=== PATIENT | male | born 1980 | race Hispanic/Latino ===

== ENCOUNTER 2018-12-30 07:37 | Emergency (ER) | payer OTHER, SELFPAY ==
--- OUTSIDE RECORDS SUMMARY | 2018-12-30 07:39 | XMS REPORT ---
:1980 Author Organization [facility] Address [address] [place] [address] Care Team Providers Name Role Phone DANIELA LIN Unavailable Unavailable Problems This patient has no known problems. Allergies, Adverse Reactions, Alerts This patient has no known allergies or adverse reactions. Medications This patient has no known medications. Encounters Start End Encounter Admission Attending Care Care Encounter Date/Time Date/Time Type Type Clinicians Facility Department ID 2017-05-11 2017-05-12 Emergency [facility] [id number] 22:38:00 00:30:00 DANIELA Results Test Description Test Time Test Comments Text Results Atomic Results Result Comments CT ABDOMEN AND 2017-05-12 00:25:05 Examination: Abdomen and pelvic CT PELVIS WITHOUT without contrast After hours service CONTRAST *WW* provided on 05/12/2017 12:22 AM.Location code: [id number]: NoneTechnique:Axial noncontrast contiguous images were obtained through the abdomen andpelvis followed by coronal and sagittal reformations. One or more of thefollowing dose reduction techniques were used: Automated exposure control,adjustment of the mA and or KV according to patient size, and/or utilization ofiterative reconstruction technique.Discussion:Clinical history is remarkable for lower abdominal pain. Lung bases are clear.The heart is upper limits of normal in size.Patient has had previous gastric bypass. Evaluation is limited due to lack ofintravenous and oral contrast. The liver, gallbladder, spleen, pancreas, andright adrenal gland are normal. Left adrenal gland is hyperplastic adenomatouschange.Kidneys demonstrate appropriate contour, no renal or ureteric calculus isidentified.Caliber of the bowel is within normal limits. The appendix is normal.Bladder, prostate, and seminal vessels are unremarkable.There are no lytic or blastic lesions present within the osseous structuresImpression:1. No acute abdominopelvic abnormality. AMYLASE AND LIPASE *WW* 2017-05-11 23:42:00 Test Item Value Reference Range Comments AMYLASE (test code=10A) 53 U/L 28-100 LIPASE (test code=60A) 204 IU/L 73-393 COMPREHENSIVE METABOLIC MEYER *WW*2017-05-11 23:42:00 Test Item Value Reference Range Comments GLUCOSE (test code=06D) 80 mg/dL 75-100 SODIUM (test code=01A) 139 mmol/L 136-145 POTASSIUM (test code=01B) 3.7 mmol/L 3.6-5.1 CHLORIDE (test code=04A) 106 mmol/L 98-107 CO2 (test code=02A) 23 mmol/L 22-32 ANION GAP (test code=ANG) 13.4 mmol/L BUN (test code=05D) 14 mg/dL 7-18 CREATININE (test code=03E) 0.7 mg/dL 0.7-1.3 BUN/CREA (test code=BCR) 20 12-20 CALCIUM (test code=09D) 7.8 mg/dL 8.3-9.5 BILI TOTAL (test code=11A) 0.6 mg/dL 0.2-1.0 PROTEIN (test code=07D) 6.8 g/dL 6.4-8.2 ALBUMIN (test code=08D) 3.9 g/dL 3.5-4.8 GLOBULIN (test code=GLB) 2.9 g/dL 1.5-3.8 ALB/GLOB (test code=AGRR) 1.4 1.0-2.6 ALK PHOS (test code=35A) 72 IU/L 42-121 AST (test code=30A) 12 IU/L <=42 ALT (test code=31A) 9 IU/L <=78 URINALYSIS WITH MICRO *WW*2017-05-11 23:31:00 Test Item Value Reference Range Comments COLOR (test code=COLU) YELLOW YELLOW CLARITY (test code=CLA) HAZY CLEAR GLUCOSE UR (test code=UA GLUCOSE) NEGATIVE NEGATIVE BILI UR (test code=BILE) 1+ NEGATIVE KETONES UR (test code=GEOVANI) 1+ NEGATIVE SP GRAVITY (test code=SPGR) 1.020 1.005-1.030 PH UR (test code=PH) 7.5 4.5-8.0 PROTEIN UR (test code=PU) 1+ NEGATIVE UROBIL UR (test code=UROQ) >=8.0 EU/dL 0.2-1.0 NITRITE UR (test code=NITRITE) NEGATIVE NEGATIVE BLOOD UR (test code=UA BLOOD) NEGATIVE NEGATIVE LEUK ES UR (test code=LEUK) NEGATIVE NEGATIVE WBC UR (test code=UWBC) 1 /HPF 0-3 RBC UR (test code=URBC) 2 /HPF 0-2 EPITH UR (test code=UEPC) FEW /LPF NONE BACTERIA UR (test code=UBACT) FEW /HPF NONE CAST UR (test code=CAST) /LPF NONE CRYSTAL UR (test code=CRYU) / LPF NONE MUCUS UR (test code=MUC) / HPF NONE AMORPH UR (test code=JOVITA) FEW / HPF NONE TRICH UR (test code=UTRICH) /HPF NONE YEAST UR (test code=UY) /HPF NONE SPERM UR (test code=USPERM) /HPF NONE CBC (INCLUDES AUTOMATED DIFFERENTIAL)*[id number] 23:21:00 Test Item Value Reference Range Comments WBC (test code=WBC) 6.5 10\S\3/uL 4.5-11.0 RBC (test code=RBC) 4.51 10\S\6/uL 4.30-5.70 HGB (test code=HBG) 14.4 g/dL 14.0-18.0 HCT (test code=HCT) 41.6 % 35.0-46.0 MCV (test code=MCV) 92.2 fL 80.0-94.0 MCH (test code=MCH) 31.9 pg 27.0-31.0 MCHC (test code=MCHC) 34.6 g/dL 32.0-36.0 RDW (test code=RDW) 12.2 % 11.5-14.5 PLT (test code=PLT) 191 10\S\3/uL 130-400 MPV (test code=MPV) 10.2 fL 9.4-12.4 NEUTROP # (test code=NE#) 3.2 10\S\3/uL 2.0-8.0 LYMPH # (test code=LY#) 2.4 10\S\3/uL 1.2-4.0 MONOCYTE # (test code=MO#) 0.8 10\S\3/uL 0.0-1.1 EOSINOPH # (test code=EO#) 0.1 10\S\3/uL 0.0-0.7 BASOPHIL # (test code=BA#) 0.0 10\S\3/uL 0.0-0.3 IG # (test code=IG#) 0.01 10\S\3/uL 0.00-0.06 NRBC # (test code=NRBC#) 0.00 10\S\3/uL 0.00-0.01 NEUTROPH % (test code=NE%) 49.1 % 35.0-73.0 LYMPH % (test code=LY%) 36.6 % 20.0-55.0 MONO % (test code=MO%) 12.4 % 2.5-10.0 EOSINOPH % (test code=EO%) 1.4 % 0.0-5.0 BASOPHIL % (test code=BA%) 0.3 % 0.0-2.0 IG % (test code=IG%) 0.2 % 0.0-0.8 NRBC% (test code=NRBC%) 0.0 % 0.0-0.2 MANDIFF (test code=WMDIFF) NO NO RBC MORPH (test code=WRBCMOR) NORMAL
[2018-12-30] MEDS ORDERED: NA CHLORIDE 0.9% 1,000 ML ONE (08:13)
[2018-12-30] MEDS ORDERED: MORPHINE 4 MG/ML SYR ONE (08:13)
[2018-12-30] MEDS ORDERED: ONDANSETRON 4 MG/2 ML VIAL ONE (08:13)
[2018-12-30 08:32] LABS: Absolute Lymphocytes (CBC) 1.6 K/uL (0.7-4.9); Basophils % 0.4 % (0-1.3); Hematocrit 46.3 % (39.6-49.0); Lymphocytes % 25.9 % (15.3-44.8); MPV 8.9 fL (7.6-11.3); RBC Red Blood Cell Count 4.82 M/uL (4.33-5.43)
[2018-12-30 08:46] LABS: ALT/SGPT 20 U/L (12-78); AST/SGOT 17 U/L (15-37); Albumin 3.9 g/dL (3.4-5.0); Alkaline Phosphatase 83 U/L (45-117); BUN Blood Urea Nitrogen 9 mg/dL (7-18); Bicarbonate 26 mmol/L (21-32); Bilirubin Direct 0.1 mg/dL (0-0.2); Bilirubin Total 0.5 mg/dL (0.2-1.0); Glucose Level 89 mg/dL (74-106); Lipase 100 U/L (73-393); Potassium 3.7 mmol/L (3.5-5.1); Protein, Total 6.6 g/dL (6.4-8.2); Sodium Level 140 mmol/L (136-145)
--- NOTE | 2018-12-30 08:57 | RAD REPORT ---
EXAM DESCRIPTION: US - Abdomen Exam Limited - 12/30/2018 8:34 am CLINICAL HISTORY: ABD PAIN COMPARISON: Abdomen Pelvis W Contrast dated 04/13/2017 FINDINGS: No gallstones, sludge or other abnormalities within the gallbladder lumen. There is no wal l thickening or pericholecystic fluid. No common duct stone or biliary tree dilatation identified. IMPRESSION: Normal gallbladder and biliary tree ultrasound.
--- NOTE | 2018-12-30 08:58 | ER ---
Nurse's Notes [facility] Name: Darrell Matt Age: 38 yrs Sex: Male : 1980 Arrival Date: 12/30/2018 Time: 07:39 Bed 20 Private MD: Diagnosis: Upper abdominal pain, unspecified Presentation: 12/30 07:51 Presenting complaint: Patient states: RUQ pain since Friday , worse today, denies iw vomiting or diarrhea, +nausea, recently stopped drinking 2 weeks ago, was drinking 1-2 bottles of wine per day. Transition of care: patient was not received from another setting of care. Onset of symptoms was December 28, 2018. Risk Assessment: Do you want to hurt yourself or someone else? Patient reports no desire to harm self or others. Initial Sepsis Screen: Does the patient meet any 2 criteria? No. Patient's initial sepsis screen is negative. Does the patient have a suspected source of infection? No. Patient's initial sepsis screen is negative. Care prior to arrival: None. 07:51 Method Of Arrival: Ambulatory iw 07:51 Acuity: JAYNA 3 iw Triage Assessment: 08:00 General: Appears in no apparent distress. uncomfortable, Behavior is cooperative, bp appropriate for age, anxious. Pain: Complains of pain in abdomen. EENT: No deficits noted. Neuro: Level of Consciousness is awake, alert, obeys commands, Oriented to person, place, time, situation, Appropriate for age. Cardiovascular: No deficits noted. Respiratory: No deficits noted. GI: Abdomen is non-distended. : No signs and/or symptoms were reported regarding the genitourinary system. Derm: No deficits noted. Musculoskeletal: No deficits noted. Historical: - Allergies: 07:54 No Known Allergies; iw - Home Meds: 07:54 None [Active]; iw - PMHx: 07:54 Anxiety; Depression; HYPOGLYCEMIA; ibs; iw - PSHx: 07:54 Gastric Bypass; back surgery; iw - Immunization history:: Adult Immunizations. - Social history:: Smoking status: Patient uses tobacco products, smokes one-half pack cigarettes per day. - Ebola Screening: : Patient negative for fever greater than or equal to 101.5 degrees Fahrenheit, and additional compatible Ebola Virus Disease symptoms Patient denies exposure to infectious person Patient denies travel to an Ebola-affected area in the 21 days before illness onset No symptoms or risks identified at this time. Screenin:04 Abuse screen: Denies threats or abuse. Denies injuries from another. Nutritional bp screening: No deficits noted. Tuberculosis screening: No symptoms or risk factors identified. Fall Risk None identified. Assessment: 08:00 General: SEE TRIAGE NOTE. bp 08:00 GI: Bowel sounds present X 4 quads. Abd is soft X 4 quads. bp 08:23 Reassessment: PT RETURNED FROM U/S. bp 09:11 Reassessment: PT D/C HOME AMBULATORY WITH FAMILY, DX WITH BILIARY COLIC. bp Vital Signs: 07:54 BP 136 / 93; Pulse 91; Resp 16 S; Temp 98.2; Pulse Ox 98% on R/A; iw 08:23 BP 122 / 90; Pulse 90; Resp 16; Pulse Ox 99% ; bp 09:12 BP 125 / 89; Pulse 78; Resp 16; Temp 98; Pulse Ox 98% ; bp ED Course: 07:39 Patient arrived in ED. mr 07:41 Nisha Omalley, WILBUR is PHCP. kb 07:41 Damon Gonzalez MD is Attending Physician. kb 07:45 Joaquin Juárez, DONIS is Primary Nurse. bp 07:53 Triage completed. iw 07:55 Arm band placed on. iw 08:04 Patient has correct armband on for positive identification. Bed in low position. Call bp light in reach. Side rails up X2. Adult w/ patient. 08:04 Inserted saline lock: 20 gauge in right forearm, using aseptic technique. Blood bp collected. 08:42 US Abdomen Limited In Process Unspecified. EDMS 09:10 No provider procedures requiring assistance completed. IV discontinued, intact, bp bleeding controlled, No redness/swelling at site. Pressure dressing applied. Administered Medications: 08:20 Drug: NS 0.9% 1000 ml Route: IV; Rate: 1000 ml; Site: right forearm; bp 09:13 Follow up: IV Status: Completed infusion; IV Intake: 1000ml bp 08:20 Drug: Zofran 4 mg Route: IVP; Site: right forearm; bp 09:13 Follow up: Response: Blood sugar is elevated; Nausea is decreased bp 08:20 Drug: morphine 4 mg Route: IVP; Site: right forearm; bp 09:14 Follow up: Response: Pain is decreased bp Intake: 09:13 IV: 1000ml; Total: 1000ml. bp Outcome: 08:58 Discharge ordered by . loy 09:11 Discharged to home ambulatory, with family. bp 09:11 Condition: stable 09:11 Discharge instructions given to patient, Instructed on discharge instructions, follow up and referral plans. medication usage, Demonstrated understanding of instructions, follow-up care, medications, Prescriptions given X 2. 09:14 Patient left the ED. bp Signatures: Dispatcher [employer] EDMS Nisha Omalley, CAFE ASSISTANT-C CAFE ASSISTANT-Kristan Francois mr Barbara Mike, RN RN iw Joaquin Juárez RN RN bp
--- NOTE | 2018-12-30 08:59 | EDPHYS ---
Physician Documentation [facility] Name: Darrell Matt Age: 38 yrs Sex: Male : 1980 Arrival Date: 12/30/2018 Time: 07:39 Bed 20 Private MD: ED Physician Damon Gonzalez HPI: 12/30 08:24 This 38 yrs old Male presents to ER via Ambulatory with complaints of kb Abdominal Pain. 08:24 The patient presents with abdominal pain in the right upper quadrant. Onset: The kb symptoms/episode began/occurred 3 day(s) ago. The symptoms do not radiate. Associated signs and symptoms: Pertinent positives: nausea. The symptoms are described as constant. Modifying factors: The symptoms are alleviated by nothing, the symptoms are aggravated by nothing. Severity of pain: At its worst the pain was moderate in the emergency department the pain is unchanged. The patient has not experienced similar symptoms in the past. The patient has not recently seen a physician. Historical: - Allergies: 07:54 No Known Allergies; iw - Home Meds: 07:54 None [Active]; iw - PMHx: 07:54 Anxiety; Depression; HYPOGLYCEMIA; ibs; iw - PSHx: 07:54 Gastric Bypass; back surgery; iw - Immunization history:: Adult Immunizations. - Social history:: Smoking status: Patient uses tobacco products, smokes one-half pack cigarettes per day. - Ebola Screening: : Patient negative for fever greater than or equal to 101.5 degrees Fahrenheit, and additional compatible Ebola Virus Disease symptoms Patient denies exposure to infectious person Patient denies travel to an Ebola-affected area in the 21 days before illness onset No symptoms or risks identified at this time. ROS: 08:22 Constitutional: Negative for fever, chills, and weight loss, ENT: Negative for injury, kb pain, and discharge, Neck: Negative for injury, pain, and swelling, Cardiovascular: Negative for chest pain, palpitations, and edema, Respiratory: Negative for shortness of breath, cough, wheezing, and pleuritic chest pain, Back: Negative for injury and pain, : Negative for injury, bleeding, discharge, and swelling, MS/Extremity: Negative for injury and deformity, Skin: Negative for injury, rash, and discoloration, Neuro: Negative for headache, weakness, numbness, tingling, and seizure. 08:22 Abdomen/GI: Positive for abdominal pain, nausea, Negative for vomiting, diarrhea, constipation. Exam: 08:22 Constitutional: This is a well developed, well nourished patient who is awake, alert, kb and in no acute distress. Head/Face: Normocephalic, atraumatic. Chest/axilla: Normal chest wall appearance and motion. Nontender with no deformity. No lesions are appreciated. Cardiovascular: Regular rate and rhythm with a normal S1 and S2. No gallops, murmurs, or rubs. Normal PMI, no JVD. No pulse deficits. Respiratory: Lungs have equal breath sounds bilaterally, clear to auscultation and percussion. No rales, rhonchi or wheezes noted. No increased work of breathing, no retractions or nasal flaring. Back: No spinal tenderness. No costovertebral tenderness. Full range of motion. Skin: Warm, dry with normal turgor. Normal color with no rashes, no lesions, and no evidence of cellulitis. MS/ Extremity: Pulses equal, no cyanosis. Neurovascular intact. Full, normal range of motion. Neuro: Awake and alert, GCS 15, oriented to person, place, time, and situation. Cranial nerves II-XII grossly intact. Motor strength 5/5 in all extremities. Sensory grossly intact. Cerebellar exam normal. Normal gait. 08:22 Abdomen/GI: Inspection: abdomen appears normal, Bowel sounds: normal, in all quadrants, Palpation: soft, in all quadrants, moderate abdominal tenderness, in the right upper quadrant. Vital Signs: 07:54 BP 136 / 93; Pulse 91; Resp 16 S; Temp 98.2; Pulse Ox 98% on R/A; iw 08:23 BP 122 / 90; Pulse 90; Resp 16; Pulse Ox 99% ; bp 09:12 BP 125 / 89; Pulse 78; Resp 16; Temp 98; Pulse Ox 98% ; bp MDM: 07:45 Patient medically screened. kb 08:24 Data reviewed: vital signs, nurses notes. Data interpreted: Pulse oximetry: on room air kb is 98 %. Interpretation: normal. 08:57 Counseling: I had a detailed discussion with the patient and/or guardian regarding: the kb historical points, exam findings, and any diagnostic results supporting the discharge/admit diagnosis, lab results, radiology results, the need for outpatient follow up, a geographical historian, to return to the emergency department if symptoms worsen or persist or if there are any questions or concerns that arise at home. 12/30 07:51 Order name: Basic Metabolic Panel; Complete Time: 08:52 kb 12/30 07:51 Order name: CBC with Diff; Complete Time: 08:38 kb 12/30 07:51 Order name: Hepatic Function; Complete Time: 08:52 kb 12/30 07:51 Order name: Lipase; Complete Time: 08:52 kb 12/30 07:51 Order name: US Abdomen Limited kb 12/30 07:51 Order name: IV Saline Lock; Complete Time: 08:03 kb 12/30 07:51 Order name: Labs collected and sent; Complete Time: 08:03 kb Administered Medications: 08:20 Drug: NS 0.9% 1000 ml Route: IV; Rate: 1000 ml; Site: right forearm; bp 09:13 Follow up: IV Status: Completed infusion; IV Intake: 1000ml bp 08:20 Drug: Zofran 4 mg Route: IVP; Site: right forearm; bp 09:13 Follow up: Response: Blood sugar is elevated; Nausea is decreased bp 08:20 Drug: morphine 4 mg Route: IVP; Site: right forearm; bp 09:14 Follow up: Response: Pain is decreased bp Disposition: 09:52 Co-signature as Attending Physician, Damon Gonzalez MD. rn Disposition: 12/30/18 08:58 Discharged to Home. Impression: Upper abdominal pain, unspecified. - Condition is Stable. - Discharge Instructions: Biliary Colic, Adult, Gastroesophageal Reflux Disease, Adult, Abdominal Pain, Adult, [id number]. - Prescriptions for Bentyl 20 mg Oral Tablet - take 1 tablet by ORAL route every 6 hours As needed; 20 tablet. Zofran 4 mg Oral Tablet - take 1 tablet by ORAL route every 6 hours As needed; 20 tablet. - Work release form, Medication Reconciliation Form, Thank You Letter, Antibiotic Education, Prescription Opioid Use form. - Follow up: Emergency Department; When: As needed; Reason: Worsening of condition. Follow up: Private Physician; When: 2 - 3 days; Reason: Recheck today's complaints, Continuance of care, Re-evaluation by your physician. Signatures: Dispatcher [facility] Nisha Arias, MANNY-C POURED WALL FOREMAN-Barbara Neff, RN RN Damon Monahan MD MD rn Joaquin Juárez, RN RN bp Corrections: (The following items were deleted from the chart) 09:14 08:58 12/30/2018 08:58 Discharged to Home. Impression: Upper abdominal pain, bp unspecified. Condition is Stable. Forms are Medication Reconciliation Form, Thank You Letter, Antibiotic Education, Prescription Opioid Use. Follow up: Emergency Department; When: As needed; Reason: Worsening of condition. Follow up: Private Physician; When: 2 - 3 days; Reason: Recheck today's complaints, Continuance of care, Re-evaluation by your physician. kb
[2018-12-30 11:36] VITALS: BP 125/89; TEMP 98; O2SAT 98
== END 2018-12-30 09:14 | disposition home or self-care (01) ==
LOC: ER 07:37
DX: R10.10 Upper abdominal pain, unspecified (principal); F17.210 Nicotine dependence, cigarettes, uncomplicated
CPT/HCPCS: 36415; 76705; 80048; 80076; 83690; 85025; 96361; 96374; 96375; 99284; J2405; J7030

== ENCOUNTER 2019-01-21 09:00 | Emergency (ER) | payer SELFPAY ==
--- OUTSIDE RECORDS SUMMARY | 2019-01-21 09:08 | XMS REPORT ---
:1980 [facility] Address [address] [place] [address] Care Team Providers Name Role Phone DANIELA LIN Unavailable Unavailable Problems This patient has no known problems. Allergies, Adverse Reactions, Alerts This patient has no known allergies or adverse reactions. Medications This patient has no known medications. Encounters Start End Encounter Admission Attending Care Care Encounter Date/Time Date/Time Type Type Clinicians Facility Department ID 2017-05-11 2017-05-12 Emergency [facility] [id number] 22:38:00 00:30:00 DANIELA Results Test Description Test Time Test Comments Text Results Atomic Results Result Comments CT ABDOMEN AND 2017-05-12 00:25:05 Examination: Abdomen and pelvic CT PELVIS WITHOUT without contrast After hours service CONTRAST *WW* provided on 05/12/2017 12:22 AM.Location code: [id number]: NoneTechnique:Axial noncontrast contiguous images were obtained through [...] (test code=USPERM) /HPF NONE CBC (INCLUDES AUTOMATED DIFFERENTIAL)*[id number] 23:21:00 Test Item Value Reference Range Comments [...]
--- NOTE | 2019-01-21 09:38 | RAD REPORT ---
EXAM DESCRIPTION: US - Abdomen Exam Limited - 01/21/2019 9:31 am CLINICAL HISTORY: RUQ pain COMPARISON: Abdomen Exam Limited dated 12/30/2018 FINDINGS: No gallstones, sludge or other abnormalities within the gallbladder lumen. There is no wal l thickening or pericholecystic fluid. Gallbladder is well filled but not dilated. No common duct stone or biliary tree dilatation identified. IMPRESSION: Normal gallbladder and biliary tree ultrasound.
[2019-01-21] MEDS ORDERED: MORPHINE 4 MG/ML SYR ONE (09:42)
[2019-01-21] MEDS ORDERED: MAGNE/ALUM HYDROXD 30 ML UCUP ONE (09:43)
[2019-01-21] MEDS ORDERED: FAMOTIDINE 20 MG/2 ML VIAL IV ONE (09:43)
[2019-01-21] MEDS ORDERED: ONDANSETRON 4 MG/2 ML VIAL ONE (09:43)
[2019-01-21] MEDS ORDERED: LIDOCAINE VISCOUS 2% SOLN 15 ML UDC ONE (09:44)
[2019-01-21 10:02] LABS: ALT/SGPT 35 U/L (12-78); AST/SGOT 22 U/L (15-37); Albumin 4.4 g/dL (3.4-5.0); Alkaline Phosphatase 96 U/L (45-117); BUN Blood Urea Nitrogen 11 mg/dL (7-18); Bicarbonate 26 mmol/L (21-32); Bilirubin Direct 0.3 mg/dL (0-0.2); Bilirubin Total 1.1 mg/dL (0.2-1.0); Glucose Level 93 mg/dL (74-106); Lipase 125 U/L (73-393); Protein, Total 7.4 g/dL (6.4-8.2); Sodium Level 141 mmol/L (136-145)
[2019-01-21 10:04] LABS: Absolute Lymphocytes (CBC) 1.4 K/uL (0.7-4.9); Basophils % 0.5 % (0-1.3); Hematocrit 47.7 % (39.6-49.0); MPV 8.2 fL (7.6-11.3); RBC Red Blood Cell Count 5.07 M/uL (4.33-5.43)
--- NOTE | 2019-01-21 10:48 | RAD REPORT ---
EXAM DESCRIPTION: CT - Abdomen Pelvis W Contrast - 01/21/2019 10:23 am CLINICAL HISTORY: Abdominal pain COMPARISON: 2018 TECHNIQUE: Computed axial tomography of the abdomen pelvis was obtained. 100 cc Isovue-300 was admin istered intravenously. Oral contrast was not requested which limits evaluation of bowel. All CT scans are performed using dose optimization technique as appropriate and may include automated exposure control or mA/KV adjustment according to patient size. FINDINGS: Mild fatty liver Spleen, pancreas, right adrenal and kidneys appear unremarkable. Mild prominence of the left adrenal gland is unchanged and could indicate adenoma or hyperplasia. Postsurgical changes involve the stomach. Normal appendix There is no evidence of diverticulitis. IMPRESSION: No acute abnormality is displayed.
--- NOTE | 2019-01-21 11:11 | ER ---
Nurse's Notes [facility] Name: Darrell Matt Age: 38 yrs Sex: Male : 1980 Arrival Date: 01/21/2019 Time: 09:03 Bed 16 Private MD: Diagnosis: Upper abdominal pain, unspecified Presentation: 01/21 09:11 Presenting complaint: Patient states: Seen in ER for abd pain on 12/30, was told to follow up with specialist, but has not been able to. Pt is back today because his symptoms have not gone away, but have gotten worse. Reports that pain is worse after every meal. Transition of care: patient was not received from another setting of care. Onset of symptoms was December 2018. Risk Assessment: Do you want to hurt yourself or someone else? Patient reports no desire to harm self or others. Initial Sepsis Screen: Does the patient meet any 2 criteria? HR > 90 bpm. Does the patient have a suspected source of infection? No. Patient's initial sepsis screen is negative. Care prior to arrival: None. 09:11 Method Of Arrival: Ambulatory ss 09:11 Acuity: JAYNA 3 ss Historical: - Allergies: 09:13 No Known Allergies; ss - PMHx: 09:13 Anxiety; Depression; HYPOGLYCEMIA; ibs; ss - PSHx: 09:13 Gastric Bypass; back surgery; ss - Immunization history:: Adult Immunizations up to date. - Family history:: not pertinent. - Ebola Screening: : Patient negative for fever greater than or equal to 101.5 degrees Fahrenheit, and additional compatible Ebola Virus Disease symptoms. - Hospitalizations: : No recent hospitalization is reported. Screenin:12 Abuse screen: Denies threats or abuse. Nutritional screening: Has had N/V for 3 or more rb1 days. Tuberculosis screening: No symptoms or risk factors identified. Fall Risk None identified. Assessment: 09:12 General: Appears in no apparent distress. comfortable, Behavior is calm, cooperative. rb1 Pain: Complains of pain in abdomen Pain currently is 8 out of 10 on a pain scale. Quality of pain is described as sharp, shooting, Pain began on 12/30. Pain increases after eating. Neuro: Level of Consciousness is awake, alert, obeys commands, Oriented to person, place, time, situation. Cardiovascular: Capillary refill < 3 seconds is brisk in bilateral fingers. Respiratory: Airway is patent Respiratory effort is even, unlabored, Respiratory pattern is regular, symmetrical. GI: Bowel sounds present X 4 quads. Abd is soft and non tender Reports diarrhea, nausea, vomiting. : No signs and/or symptoms were reported regarding the genitourinary system. Derm: Skin is pink, warm \T\ dry. Vital Signs: 09:11 BP 157 / 100; Pulse 103; Resp 16; Temp 98.8(TE); Pulse Ox 100% on R/A; ss 09:12 Weight 99.79 kg (R); Height 5 ft. 9 in. (175.26 cm) (R); Pain 8/10; rb1 10:10 BP 137 / 83; Pulse 84; Resp 17; Pulse Ox 96% ; rb1 11:09 BP 137 / 85; Pulse 89; Resp 18; Pulse Ox 97% on R/A; Pain 5/10; rb1 09:12 Body Mass Index 32.49 (99.79 kg, 175.26 cm) rb1 ED Course: 09:03 Patient arrived in ED. as 09:04 Damon Gonzalez MD is Attending Physician. rn 09:11 Arm band placed on right wrist. ss 09:12 Triage completed. ss 09:12 Patient has correct armband on for positive identification. Bed in low position. Call rb1 light in reach. Side rails up X 1. Pulse ox on. NIBP on. 09:15 Greta Cottrell, RN is Primary Nurse. rb1 09:33 US Abdomen Limited In Process Unspecified. EDMS 09:37 Inserted saline lock: 20 gauge in right antecubital area, using aseptic technique. rb1 ,using aseptic technique. IV was inserted by [facility], Instructor and nursing students. Blood collected. 10:27 CT Abd/Pelvis - IV Contrast Only In Process Unspecified. EDMS 11:06 Ash Gallardo MD is Referral Physician. rn 11:26 No provider procedures requiring assistance completed. IV discontinued, intact, rb1 bleeding controlled, No redness/swelling at site. Pressure dressing applied. Administered Medications: 09:43 Drug: GI Cocktail without - (Maalox Suspension 30 ml, Lidocaine Liquid 2 % 15 rb1 ml) Route: PO; 10:00 Follow up: Response: No adverse reaction rb1 09:43 Drug: Pepcid 20 mg Route: IVP; Site: right antecubital; rb1 10:00 Follow up: Response: No adverse reaction rb1 09:43 Drug: Zofran 4 mg Route: IVP; Site: right antecubital; rb1 10:00 Follow up: Response: No adverse reaction; Nausea is decreased rb1 09:43 Drug: morphine 4 mg Route: IVP; Site: right antecubital; rb1 10:00 Follow up: Response: No adverse reaction; Pain is decreased rb1 Outcome: 11:06 Discharge ordered by . rn 11:26 Patient left the ED. rb1 11:26 Discharged to home ambulatory, with significant other. rb1 11:26 Condition: stable 11:26 Discharge instructions given to patient, Instructed on discharge instructions, follow up and referral plans. medication usage, Demonstrated understanding of instructions, follow-up care, medications, Prescriptions given X 2. Signatures: Dispatcher [employer] Dina Ellison Roman, MD MD rn Smirch, Shelby, RN RN ss Greta Cottrell RN RN rb1
--- NOTE | 2019-01-21 11:12 | EDPHYS ---
Physician Documentation [facility] Name: Darrell Matt Age: 38 yrs Sex: Male : 1980 Arrival Date: 01/21/2019 Time: 09:03 Bed 16 Private MD: ED Physician Damon Gonzalez HPI: 01/21 11:01 This 38 yrs old Male presents to ER via Ambulatory with complaints of rn Abdominal Pain. 11:01 The patient presents with abdominal pain in the epigastric area. Onset: The rn symptoms/episode began/occurred weeks/months ago. The symptoms do not radiate. Associated signs and symptoms: Pertinent positives: nausea and vomiting, Pertinent negatives: blood in stools, chest pain, constipation, dysuria, fever. The symptoms are described as burning, crampy. Modifying factors: The symptoms are alleviated by nothing, the symptoms are aggravated by food. Severity of pain: At its worst the pain was moderate in the emergency department the pain has improved. The patient has experienced similar episodes in the past. The patient has been recently seen by a physician: The patient has been recently seen at the [facility] Emergency Department. Reports pain on and off for weeks/months, told to f/u with GI but has not, worse with food, neg blood and u/s this month. No hematemesis or dark stool. + drinker. . Historical: - Allergies: 09:13 No Known Allergies; ss - PMHx: 09:13 Anxiety; Depression; HYPOGLYCEMIA; ibs; ss - PSHx: 09:13 Gastric Bypass; back surgery; ss - Immunization history:: Adult Immunizations up to date. - Family history:: not pertinent. - Ebola Screening: : Patient negative for fever greater than or equal to 101.5 degrees Fahrenheit, and additional compatible Ebola Virus Disease symptoms. - Hospitalizations: : No recent hospitalization is reported. ROS: 11:01 Constitutional: Negative for fever, chills, and weight loss, Eyes: Negative for injury, rn pain, redness, and discharge, Cardiovascular: Negative for chest pain, palpitations, and edema, Respiratory: Negative for shortness of breath, cough, wheezing, and pleuritic chest pain, Abdomen/GI: + abd pain and nausea Back: Negative for injury and pain, : Negative for injury, bleeding, discharge, and swelling, MS/Extremity: Negative for injury and deformity, Skin: Negative for injury, rash, and discoloration, Neuro: Negative for headache, weakness, numbness, tingling, and seizure. Exam: 11:01 Constitutional: This is a well developed, well nourished patient who is awake, alert, rn and in no acute distress. Head/Face: Normocephalic, atraumatic. ENT: MMM Cardiovascular: Regular rate and rhythm. No pulse deficits. Respiratory: No increased work of breathing, no retractions or nasal flaring. Abdomen/GI: soft, + RUQ tenderness, neg valero, no peritoneal signs. Skin: Warm, dry MS/ Extremity: Pulses equal, no cyanosis. Neurovascular intact. Full, normal range of motion. Equal circumference. Neuro: Awake and alert, GCS 15 Vital Signs: 09:11 BP 157 / 100; Pulse 103; Resp 16; Temp 98.8(TE); Pulse Ox 100% on R/A; ss 09:12 Weight 99.79 kg (R); Height 5 ft. 9 in. (175.26 cm) (R); Pain 8/10; rb1 10:10 BP 137 / 83; Pulse 84; Resp 17; Pulse Ox 96% ; rb1 11:09 BP 137 / 85; Pulse 89; Resp 18; Pulse Ox 97% on R/A; Pain 5/10; rb1 09:12 Body Mass Index 32.49 (99.79 kg, 175.26 cm) rb1 MDM: 09:04 Patient medically screened. rn 11:01 Differential diagnosis: cholecystitis, Cholelithiasis, gastritis, gastroesophageal rn reflux disease, Hepatitis, pancreatitis, Peptic Ulcer Disease. Data reviewed: vital signs, nurses notes, lab test result(s), radiologic studies, CT scan, ultrasound, and as a result, I will discharge patient. Counseling: I had a detailed discussion with the patient and/or guardian regarding: the historical points, exam findings, and any diagnostic results supporting the discharge/admit diagnosis, lab results, radiology results, the need for outpatient follow up, to return to the emergency department if symptoms worsen or persist or if there are any questions or concerns that arise at home. Response to treatment: the patient's symptoms have markedly improved after treatment, and as a result, I will discharge patient. Special discussion: Based on the patient's Hx, exam, and Dx evaluation, there is no indication for emergent surgery or inpatient Tx. It is understood by the patient/guardian that if the Sx's persist or worsen they need to return immediately for re-evaluation. I discussed with the patient/guardian in detail that at this point there is no indication for admission to the hospital. It is understood, however, that if the symptoms persist or worsen the patient needs to return immediately for re-evaluation. Based on the history and exam findings, there is no indication for further emergent testing or inpatient evaluation. I discussed with the patient/guardian the need to see the cash applications clerk for further evaluation of the symptoms. ED course: Improved after pain meds and GI cocktail, no acute findings on U/S or CT abdomen, urged to f/u with GI for breath test/HIDA/EGD, return precautions given. Also told to take OTC antacids regularly and modify diet. . 01/21 09:15 Order name: Basic Metabolic Panel; Complete Time: 10: rn 01/21 09:15 Order name: CBC with Diff; Complete Time: 10: rn 01/21 09:15 Order name: Creatinine for Radiology; Complete Time: 10: rn 01/21 09:15 Order name: Hepatic Function; Complete Time: 10: rn 01/21 09:15 Order name: Lipase; Complete Time: 10: rn 01/21 09:15 Order name: US Abdomen Limited; Complete Time: 10: rn 01/21 09:15 Order name: IV Saline Lock; Complete Time: 09:37 rn 01/21 09:15 Order name: Labs collected and sent; Complete Time: 09:37 rn 01/21 09:15 Order name: CT Abd/Pelvis - IV Contrast Only rn Administered Medications: :43 Drug: GI Cocktail without - (Maalox Suspension 30 ml, Lidocaine Liquid 2 % 15 rb1 ml) Route: PO; 10:00 Follow up: Response: No adverse reaction rb1 09:43 Drug: Pepcid 20 mg Route: IVP; Site: right antecubital; rb1 10:00 Follow up: Response: No adverse reaction rb1 09:43 Drug: Zofran 4 mg Route: IVP; Site: right antecubital; rb1 10:00 Follow up: Response: No adverse reaction; Nausea is decreased rb1 09:43 Drug: morphine 4 mg Route: IVP; Site: right antecubital; rb1 10:00 Follow up: Response: No adverse reaction; Pain is decreased rb1 Disposition: 01/21/19 11:06 Discharged to Home. Impression: Upper abdominal pain, unspecified. - Condition is Stable. - Discharge Instructions: Abdominal Pain, Adult, Gallbladder Nuclear Scan. - Prescriptions for Zofran ODT 4 mg Oral tablet,disintegrating - place 1 tablet by TRANSLINGUAL route every 8 hours As needed; 20 tablet. Tylenol- Codeine #3 300-30 mg Oral Tablet - take 2 tablets by ORAL route every 6 hours As needed; 20 tablet. - Medication Reconciliation Form, Thank You Letter, Antibiotic Education, Prescription Opioid Use form. - Follow up: Ash Gallardo MD; When: As needed; Reason: Recheck today's complaints, Re-evaluation by your physician. - Problem is an ongoing problem. - Symptoms have improved. Signatures: Dispatcher [employer] EDDamon Cazares MD MD rn Smirch, Shelby, RN RN Greta Cottrell RN RN rb1 Corrections: (The following items were deleted from the chart) 11:26 11:06 01/21/2019 11:06 Discharged to Home. Impression: Upper abdominal pain, rb1 unspecified. Condition is Stable. Forms are Medication Reconciliation Form, Thank You Letter, Antibiotic Education, Prescription Opioid Use. Follow up: Ash Gallardo; When: As needed; Reason: Recheck today's complaints, Re-evaluation by your physician. Problem is an ongoing problem. Symptoms have improved. rn
[2019-01-21 11:41] VITALS: TEMP 98.8
[2019-01-21 11:44] VITALS: BP 137/83; O2SAT 96
== END 2019-01-21 11:26 | disposition home or self-care (01) ==
LOC: ER 09:00
DX: R10.13 Epigastric pain (principal)
CPT/HCPCS: 36415; 74177; 76705; 80048; 80076; 83690; 85025; 96374; 96375; 99284; J2405; Q9967

== ENCOUNTER 2019-11-04 09:02 | Emergency (ER) | payer SELFPAY ==
--- NOTE | 2019-11-04 09:26 | ER ---
Nurse's Notes [facility] Name: Darrell Matt Age: 39 yrs Sex: Male : 1980 Arrival Date: 11/04/2019 Time: 09:06 Bed 16 Private MD: Diagnosis: Low back pain Presentation: 11/03 09:21 Chief complaint: Low back pain 9/10 and nausea after moving ladder at work yesterday. hb Coronavirus screen: At this time, the client does not indicate any symptoms associated with coronavirus-19. Ebola Screen: No symptoms or risks identified at this time. Initial Sepsis Screen: Does the patient meet any 2 criteria? No. Patient's initial sepsis screen is negative. Does the patient have a suspected source of infection? No. Patient's initial sepsis screen is negative. Risk Assessment: Do you want to hurt yourself or someone else? Patient reports no desire to harm self or others. Onset of symptoms was November 03, 2019. 09:21 Method Of Arrival: Ambulatory hb 09:21 Acuity: JAYNA 4 hb Triage Assessment: 09:55 General: Appears. hb Historical: - Allergies: 09:23 No Known Allergies; hb - Home Meds: 09:23 Bentyl Oral [Active]; gabapentin 600 mg Oral tab 1 tab 3 times per day [Active]; hb Lexapro 20 mg oral tab [Active]; Seroquel 100 mg Oral tab [Active]; trazodone 100 mg Oral tab 1 tab nightly [Active]; - PMHx: 09:23 Anxiety; Depression; HYPOGLYCEMIA; ibs; hb - PSHx: 09:23 back surgery; Gastric Bypass; hb - Immunization history:: Adult Immunizations up to date. - Social history:: Smoking status: Patient reports the use of cigarette tobacco products, smokes one-half pack cigarettes per day. Screenin:35 Abuse screen: Denies threats or abuse. Denies injuries from another. Nutritional hb screening: No deficits noted. Tuberculosis screening: No symptoms or risk factors identified. Fall Risk None identified. Assessment: 09:23 General: See triage assessment.. hb 09:48 Reassessment: Discharge pending shot time. hb Vital Signs: 09:21 BP 162 / 92; Pulse 68; Resp 16; Temp 97.9; Pulse Ox 100% ; Weight 106.59 kg; Height 6 hb ft. 2 in. (187.96 cm); Pain 9/10; 09:21 Body Mass Index 30.17 (106.59 kg, 187.96 cm) hb ED Course: 09:06 Patient arrived in ED. mr 09:10 N[facility]malley [facility]. kb 09:10 Estuardo Marques MD is Attending Physician. kb 09:21 Lulu Mcmahon, RN is Primary Nurse. hb 09:22 Triage completed. hb 09:23 Arm band placed on. hb 09:35 Patient has correct armband on for positive identification. Bed in low position. Call hb light in reach. 09:47 No provider procedures requiring assistance completed. Patient did not have IV access hb during this emergency room visit. Administered Medications: 09:37 Drug: TORadol 30 mg Route: IM; Site: left deltoid; hb 09:54 Follow up: Response: No adverse reaction hb 09:38 Drug: [place] 10 mg-325 mg 1 tabs Route: PO; hb 09:55 Follow up: Response: No adverse reaction hb 09:38 Drug: Zofran (Ondansetron) 4 mg Route: PO; hb 09:54 Follow up: Response: No adverse reaction hb Outcome: 09:25 Discharge ordered by MD. kb 09:55 Discharged to home ambulatory. hb 09:55 Condition: stable 09:55 Discharge instructions given to patient, Instructed on discharge instructions, follow up and referral plans. medication usage, Demonstrated understanding of instructions, follow-up care, medications, Prescriptions given X 2. 09:55 Patient left the ED. hb Signatures: Nisha Omalley FNP-C FNP-Tiffani Alon Kristan hopper Lulu Mcmahon, RN RN hb
--- NOTE | 2019-11-04 09:26 | EDPHYS ---
Physician Documentation [facility] Name: Darrell Matt Age: 39 yrs Sex: Male : 1980 Arrival Date: 11/04/2019 Time: 09:06 Bed 16 Private MD: ED Physician Estuardo Marques HPI: 11/03 09:22 This 39 yrs old Male presents to ER via Ambulatory with complaints of Back kb Pain. 09:22 The patient presents with pain that is acute. The symptoms are located in the low back. kb Onset: The symptoms/episode began/occurred yesterday. The pain does not radiate. Associated signs and symptoms: The patient has no apparent associated signs or symptoms. The problem was sustained when lifting ladder, from twisting. Modifying factors: The patient symptoms are alleviated by nothing, the patient symptoms are aggravated by any movement. Severity of symptoms: At their worst the symptoms were moderate, in the emergency department the symptoms are unchanged. The patient has not experienced similar symptoms in the past. The patient has not recently seen a physician. Pt reports he was lifting a ladder yesterday and twisted wrong causing pain to lower back. Reports pain is worse today. Denies numbness, tingling, urinary symptoms, incontinence. Ambulates with steady gait. Historical: - Allergies: : No Known Allergies; hb - Home Meds: : Bentyl Oral [Active]; gabapentin 600 mg Oral tab 1 tab 3 times per day [Active]; hb Lexapro 20 mg oral tab [Active]; Seroquel 100 mg Oral tab [Active]; trazodone 100 mg Oral tab 1 tab nightly [Active]; - PMHx: : Anxiety; Depression; HYPOGLYCEMIA; ibs; hb - PSHx: 09: back surgery; Gastric Bypass; hb - Immunization history:: Adult Immunizations up to date. - Social history:: Smoking status: Patient reports the use of cigarette tobacco products, smokes one-half pack cigarettes per day. ROS: 09:22 Constitutional: Negative for fever, chills, and weight loss, Cardiovascular: Negative kb for chest pain, palpitations, and edema, Respiratory: Negative for shortness of breath, cough, wheezing, and pleuritic chest pain, Abdomen/GI: Negative for abdominal pain, nausea, vomiting, diarrhea, and constipation, : Negative for injury, bleeding, discharge, and swelling, MS/Extremity: Negative for injury and deformity, Skin: Negative for injury, rash, and discoloration, Neuro: Negative for headache, weakness, numbness, tingling, and seizure. 09:22 Back: Positive for pain at rest, pain with movement, of the lumbar area and left low back. Exam: 09:22 Constitutional: This is a well developed, well nourished patient who is awake, alert, kb and in no acute distress. Head/Face: Normocephalic, atraumatic. Chest/axilla: Normal chest wall appearance and motion. Nontender with no deformity. No lesions are appreciated. Cardiovascular: Regular rate and rhythm with a normal S1 and S2. No gallops, murmurs, or rubs. Normal PMI, no JVD. No pulse deficits. Respiratory: Lungs have equal breath sounds bilaterally, clear to auscultation and percussion. No rales, rhonchi or wheezes noted. No increased work of breathing, no retractions or nasal flaring. Abdomen/GI: Soft, non-tender, with normal bowel sounds. No distension or tympany. No guarding or rebound. No evidence of tenderness throughout. Skin: Warm, dry with normal turgor. Normal color with no rashes, no lesions, and no evidence of cellulitis. MS/ Extremity: Pulses equal, no cyanosis. Neurovascular intact. Full, normal range of motion. Neuro: Awake and alert, GCS 15, oriented to person, place, time, and situation. Cranial nerves II-XII grossly intact. Motor strength 5/5 in all extremities. Sensory grossly intact. Cerebellar exam normal. Normal gait. 09:22 Back: pain, that is moderate, of the lumbar area and left low back, ROM is painful, with all movement, normal spinal alignment noted. Vital Signs: 09:21 BP 162 / 92; Pulse 68; Resp 16; Temp 97.9; Pulse Ox 100% ; Weight 106.59 kg; Height 6 hb ft. 2 in. (187.96 cm); Pain 9/10; 09:21 Body Mass Index 30.17 (106.59 kg, 187.96 cm) hb MDM: 09:17 Patient medically screened. kb 09:22 Data reviewed: vital signs, nurses notes. Data interpreted: Pulse oximetry: on room air kb is 100 %. Interpretation: normal. Counseling: I had a detailed discussion with the patient and/or guardian regarding: the historical points, exam findings, and any diagnostic results supporting the discharge/admit diagnosis, the need for outpatient follow up, a family practitioner, to return to the emergency department if symptoms worsen or persist or if there are any questions or concerns that arise at home. Administered Medications: 09:37 Drug: TORadol 30 mg Route: IM; Site: left deltoid; hb 09:54 Follow up: Response: No adverse reaction hb 09:38 Drug: [place] 10 mg-325 mg 1 tabs Route: PO; hb 09:55 Follow up: Response: No adverse reaction hb 09:38 Drug: Zofran (Ondansetron) 4 mg Route: PO; hb 09:54 Follow up: Response: No adverse reaction hb Disposition: 11:13 Co-signature as Attending Physician, Estuardo Marques MD I agree with the assessment and kdr plan of care. Disposition: 11/04/19 09:25 Discharged to Home. Impression: Low back pain. - Condition is Stable. - Discharge Instructions: Back Injury Prevention, [id number], Back Pain, Adult, [id number], Back Exercises, [id number]. - Prescriptions for Cyclobenzaprine 10 mg Oral Tablet - take 1 tablet by ORAL route every 8 hours As needed; 21 tablet. Diclofenac Sodium 75 mg Oral Tablet, Delayed Release (E.C.) - take 1 tablet by ORAL route 2 times per day As needed; 30 tablet. - Work release form, Medication Reconciliation Form, Thank You Letter, Antibiotic Education, Prescription Opioid Use form. - Follow up: Emergency Department; When: As needed; Reason: Worsening of condition. Follow up: Private Physician; When: 2 - 3 days; Reason: Recheck today's complaints, Continuance of care, Re-evaluation by your physician. Signatures: Nisha Omalley, DRUM DRIER-C DRUM DRIER-Estuardo Ortiz MD MD [facility] Lulu Mcmahon RN RN Corrections: (The following items were deleted from the chart) 09:24 09:22 Pt reports he was lifting a ladder yesterday and twisted wrong causing pain to kb lower back. Reports pain is worse today. Denies numbness, tingling, urinary symptoms, incontinence. . kb 09:55 09:25 11/04/2019 09:25 Discharged to Home. Impression: Low back pain. Condition is hb Stable. Forms are Medication Reconciliation Form, Thank You Letter, Antibiotic Education, Prescription Opioid Use. Follow up: Emergency Department; When: As needed; Reason: Worsening of condition. Follow up: Private Physician; When: 2 - 3 days; Reason: Recheck today's complaints, Continuance of care, Re-evaluation by your physician. kb
--- OUTSIDE RECORDS SUMMARY | 2019-11-04 09:39 | XMS REPORT | Continuity of Care Document ---
:1980 Author Organization [facility] t Address [address] [place] [address] Care Team Providers Name Role Phone DR Juliette LIN Attending Clinician Unavailable DR Juliette LIN Admitting Clinician Unavailable Problems This patient has no known problems. Allergies, Adverse Reactions, Alerts This patient has no known allergies or adverse reactions. Medications This patient has no known medications. Procedures This patient has no known procedures. Encounters Start End Encounter Admission Attending Care Care Encounter Source Date/Time Date/Time Type Type Clinicians Facility Department ID 2017-05-11 2017-05-12 Emergency [facility] [id number] 22:38:00 00:30:00 [facility] Results Test Description Test Time Test Comments Results Result [facility] e Comments CT ABDOMEN AND 2017-05-12 Examination: Abdomen PELVIS WITHOUT 00:25:[address] without CONTRAST *WW* contrast After hours service provided on 05/12/2017 12:22 AM.Location code: [id number]: NoneTechnique:Axial noncontrast contiguous images were obtained through the abdomen andpelvis followed by coronal and sagittal reformations. One or more of thefollowing dose reduction techniques were used: Automated exposure control,adjustment of the mA and or KV according to patient size, and/or utilization ofiterative reconstruction technique.Discussion: Clinical history is remarkable for lower abdominal pain. Lung bases are clear.The heart is upper limits of normal in size.Patient has had previous gastric bypass. Evaluation is limited due to lack ofintravenous and oral contrast. The liver, gallbladder, spleen, pancreas, andright adrenal gland are normal. Left adrenal gland is hyperplastic adenomatouschange.Kid neys demonstrate appropriate contour, no renal or ureteric calculus isidentified.Caliber of the bowel is within normal limits. The appendix is normal.Bladder, prostate, and seminal vessels are unremarkable.There are no lytic or blastic lesions present within the osseous structuresImpression: 1. No acute abdominopelvic abnormality. AMYLASE AND LIPASE *WW* 2017-05-11 23:42:00 Test Item Value Reference Range Interpretation Comme nts AMYLASE (test code = 10A) 53 U/L 28-100 LIPASE (test code = 60A) 204 IU/L 73-393 COMPREHENSIVE METABOLIC MEYER *WW*2017-05-11 23:42:00 Test Item Value Reference Range Interpretation Comments GLUCOSE (test code = 06D) 80 mg/dL 75-100 SODIUM (test code = 01A) 139 mmol/L 136-145 POTASSIUM (test code = 01B) 3.7 mmol/L 3.6-5.1 CHLORIDE (test code = 04A) 106 mmol/L 98-107 CO2 (test code = 02A) 23 mmol/L 22-32 ANION GAP (test code = ANG) 13.4 mmol/L BUN (test code = 05D) 14 mg/dL 7-18 CREATININE (test code = 03E) 0.7 mg/dL 0.7-1.3 BUN/CREA (test code = BCR) 20 12-20 CALCIUM (test code = 09D) 7.8 mg/dL 8.3-9.5 L BILI TOTAL (test code = 11A) 0.6 mg/dL 0.2-1.0 PROTEIN (test code = 07D) 6.8 g/dL 6.4-8.2 ALBUMIN (test code = 08D) 3.9 g/dL 3.5-4.8 GLOBULIN (test code = GLB) 2.9 g/dL 1.5-3.8 ALB/GLOB (test code = AGRR) 1.4 1.0-2.6 ALK PHOS (test code = 35A) 72 IU/L 42-121 AST (test code = 30A) 12 IU/L <=42 ALT (test code = 31A) 9 IU/L <=78 URINALYSIS WITH MICRO 2017-05-11 23:31:00 Test Item Value Reference Range Interpretation Comments COLOR (test code = COLU) YELLOW YELLOW CLARITY (test code = CLA) HAZY CLEAR A GLUCOSE UR (test code = UA NEGATIVE NEGATIVE GLUCOSE) BILI UR (test code = BILE) 1+ NEGATIVE A KETONES UR (test code = GEOVANI) 1+ NEGATIVE A SP GRAVITY (test code = SPGR) 1.020 1.005-1.030 PH UR (test code = PH) 7.5 4.5-8.0 PROTEIN UR (test code = PU) 1+ NEGATIVE A UROBIL UR (test code = UROQ) >=8.0 EU/dL 0.2-1.0 H NITRITE UR (test code = NITRITE) NEGATIVE NEGATIVE BLOOD UR (test code = UA BLOOD) NEGATIVE NEGATIVE LEUK ES UR (test code = LEUK) NEGATIVE NEGATIVE WBC UR (test code = UWBC) 1 /HPF 0-3 RBC UR (test code = URBC) 2 /HPF 0-2 EPITH UR (test code = UEPC) FEW /LPF NONE A BACTERIA UR (test code = UBACT) FEW /HPF NONE A CAST UR (test code = CAST) /LPF NONE CRYSTAL UR (test code = CRYU) / LPF NONE MUCUS UR (test code = MUC) / HPF NONE AMORPH UR (test code = JOVITA) FEW / HPF NONE A TRICH UR (test code = UTRICH) /HPF NONE YEAST UR (test code = UY) /HPF NONE SPERM UR (test code = USPERM) /HPF NONE CBC (INCLUDES AUTOMATED DIFFERENTIAL)*[id number] 23:21:00 Test Item Value Reference Range Interpretation Comments WBC (test code = WBC) 6.5 10\S\3/uL 4.5-11.0 RBC (test code = RBC) 4.51 10\S\6/uL 4.30-5.70 HGB (test code = HBG) 14.4 g/dL 14.0-18.0 HCT (test code = HCT) 41.6 % 35.0-46.0 MCV (test code = MCV) 92.2 fL 80.0-94.0 MCH (test code = MCH) 31.9 pg 27.0-31.0 H MCHC (test code = MCHC) 34.6 g/dL 32.0-36.0 RDW (test code = RDW) 12.2 % 11.5-14.5 PLT (test code = PLT) 191 10\S\3/uL 130-400 MPV (test code = MPV) 10.2 fL 9.4-12.4 NEUTROP # (test code = NE#) 3.2 10\S\3/uL 2.0-8.0 LYMPH # (test code = LY#) 2.4 10\S\3/uL 1.2-4.0 MONOCYTE # (test code = MO#) 0.8 10\S\3/uL 0.0-1.1 EOSINOPH # (test code = EO#) 0.1 10\S\3/uL 0.0-0.7 BASOPHIL # (test code = BA#) 0.0 10\S\3/uL 0.0-0.3 IG # (test code = IG#) 0.01 10\S\3/uL 0.00-0.06 NRBC # (test code = NRBC#) 0.00 10\S\3/uL 0.00-0.01 NEUTROPH % (test code = NE%) 49.1 % 35.0-73.0 LYMPH % (test code = LY%) 36.6 % 20.0-55.0 MONO % (test code = MO%) 12.4 % 2.5-10.0 H EOSINOPH % (test code = EO%) 1.4 % 0.0-5.0 BASOPHIL % (test code = BA%) 0.3 % 0.0-2.0 IG % (test code = IG%) 0.2 % 0.0-0.8 NRBC% (test code = NRBC%) 0.0 % 0.0-0.2 MANDIFF (test code = WMDIFF) NO NO RBC MORPH (test code = NORMAL WRBCMOR)
[2019-11-04] MEDS ORDERED: HYDROCODONE/APAP 10/325 TAB ONE (09:40)
[2019-11-04] MEDS ORDERED: KETOROLAC 30 MG/ML INJ ONE (09:40)
[2019-11-04] MEDS ORDERED: ONDANSETRON 4 MG (ODT) TAB ONE (09:40)
[2019-11-04 10:03] VITALS: BP 162/92; TEMP 97.9; O2SAT 100
== END 2019-11-04 09:55 | disposition home or self-care (01) ==
LOC: ER 09:02
DX: M54.5 Low back pain (principal); F41.8 Other specified anxiety disorders; F17.210 Nicotine dependence, cigarettes, uncomplicated; Z98.84 Bariatric surgery status
CPT/HCPCS: 96372; 99283

== ENCOUNTER 2020-12-01 08:08 | Emergency (ER) | payer OTHER, SELFPAY ==
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
[2020-12-01 09:19] VITALS: TEMP 98.2; O2SAT 97
[2020-12-01 09:21] VITALS: BP 140/87
[2020-12-01] MEDS ORDERED: HYDROCODONE/APAP 7.5/325 MG TAB ONE (09:22)
== END 2020-12-01 09:15 | disposition home or self-care (01) ==
LOC: ER 08:08
DX: R07.89 Other chest pain (principal); S20.211A Contusion of right front wall of thorax, initial encounter; V49.40XA Driver injured in collision with unspecified motor vehicles in traffic accident, initial encounter; F17.210 Nicotine dependence, cigarettes, uncomplicated
CPT/HCPCS: 71250; 99284

== ENCOUNTER 2022-09-02 09:32 | Emergency (ER) | payer SELFPAY ==
[2022-09-02] MEDS ORDERED: ONDANSETRON 4 MG/2 ML VIAL ONE (10:36)
[2022-09-02] MEDS ORDERED: MORPHINE 4 MG/ML SYR ONE (10:36)
[2022-09-02] MEDS ORDERED: NA CHLORIDE 0.9% 1,000 ML ONE (10:37)
--- OUTSIDE RECORDS SUMMARY | 2022-09-02 16:02 | XMS REPORT | Continuity of Care Document ---
:1980 Author Organization [facility] t Address [address] [facility] [place] [address] [place] [address] Care Team Providers Name Role Phone EVERARDO BANEGAS Attending Clinician Unavailable JUSTINE ACKERMAN Attending Clinician Unavailable JAMARI JIMENES Attending Clinician Unavailable JESUS ALBERTO, CATRACHITO P Attending Clinician Unavailable ALESHA BORRERO Attending Clinician Unavailable MORE CORTEZ Attending Clinician Unavailable DALY HOWARD Attending Clinician Unavailable DR DANIELA LIN Attending Clinician Unavailable DR DANIELA LIN Admitting Clinician Unavailable Payers Payer Name Policy Type Policy Number Effective Date Expiration Date S ource Problems This patient has no known problems. Allergies, Adverse Reactions, Alerts Allergy Allergy Status Severity Reaction(s) Onset Inactive Treating Comm ents Source Name Type Date Date Clinician No Known DA Active [facility] Allergie Ripley s Medications This patient has no known medications. Vital Signs Vital Name Observation Time Observation Value Comments Source Height 2017-05-11 23:06:00 175.26 CM Weight 2017-05-11 23:06:00 95.25 KG Procedures This patient has no known procedures. Encounters Start End Encounter Admission Attending Care Care Encounter Source Date/Time Date/Time Type Type Clinicians Facility Department ID 2021-08-[address] [facility] [id number] [place] 22:36:34 [id number] [facility] 2022-04-10 2022-04-14 Inpatient MAKENZIE [facility] [id number] [place] 16:58:24 13:51:00 EVERARDO [facility] 2021-10-25 2021-10-25 Outpatient TYRON [facility] [id number] [place] 00:00:00 00:00:00 JUSTINE [facility] 2021-10-10 2021-10-11 Inpatient [place], [facility] [id number] [place] 22:45:00 18:24:00 [facility] 2021-10-10 2021-10-10 Emergency [place], [facility] [id number] [place] 00:40:00 22:32:00 [facility] 2021-10-10 2021-10-10 Emergency 1 SEVERE, [facility] [id number] [place] 00:40:00 00:40:00 [facility] 2021-10-09 2021-10-09 Outpatient ALESHA BORRERO [facility] [id number] [place] 20:21:14 23:59:00 [facility] 2021-08-27 2021-08-31 Inpatient BANEGAS, [facility] [id number] [place] 19:36:01 [facility] 2021-08-27 Outpatient DANA, [facility] [id number] [place] 10:36:51 19:34:00 MORE [facility] 2021-07-20 2021-07-20 Outpatient HOWARD, [facility] [id number] [place] 09:19:31 23:59:00 [facility] 2017-05-11 2017-05-12 Emergency E LIN, [facility] [id number] [facility] 22:38:00 00:30:00 [facility] Results Test Description Test Time Test Comments Results Result Comments Source GONORRHEA, NAAT, URINE 2021-11-20 17:42:55 Test Item Value Reference Range Interpretation Comme nts GONORRHEA, NAAT NEGATIVE NEGATIVE IMPORTA NT NOTICE: SEE ANNOUNCEMENT AT (test code = [email or web address] Note: 56435) Assay methodolo gy is nucleic acid amplification by transcriptio n mediated amplification (TMA) utilizing the A ptima Combo 2 Assay. CHLAMYDIA, NAAT, [id number] 17:42:55 Test Item Value Reference Range Interpretation Comments CHLAMYDIA, NAAT NEGATIVE NEGATIVE IMPORTA NT NOTICE: SEE (test code = [place] [address]) [email or web address] [email or web address] Note: Assay methodology is nucleic acid amplification b y senior contracts administrator m ediated amplification ( TMA) utilizing the A ptima Combo 2 Assay. UNLESS OTHERWISE INDICATED, ALL TESTING PERFORMED [facility]. [address] [place] [id number] [place] [address] DIRECTOR: MARKUS MIDDLETON M.D. CLIA NUMBER [id number] CAP ACCREDITATION N O. [id number] 09:41:39 Test Item Value Reference Range Interpretation Comments RPR RESULT (test code = NON-REACTIVE NON-REACTIVE 3501) RPR TITER (test code = 3500) NOT INDIC. TITER NOT INDIC. LIPID [id number] 06:21:35 Test Item Value Reference Range Interpretation Comments CHOLESTEROL (test 190 MG/DL <200 code = 2210) TRIGLYCERIDES (test 282 MG/DL <150 H code = 2232) HDL CHOLESTEROL (test 33 MG/DL >39 L code = 2220) CALC LDL CHOL (test 117 MG/DL <100 H NOTE: C ALCULATED LDL code = 2237) IS BASED ON RYLAN-GUZMAN METHOD WHICHINCLUDES ADJUSTABLE TRIGLYCERIDE:VL DL CHOLESTEROL RAT IO.THIS FACTOR VARIES B Y MEASURED TRIGLY CERIDE AND NON-HDLCHOL ESTEROL CONCENTRATIONS WITH INCREASED CALCU LATED LDL SEENIN HIGH ER TRIGLYCERIDE OR LOWER NON-HDL SPECIME NS. FOR MOREINFORMATION , SEE CLIENT ANNOUNCE MENT AT [email or web address] RATIO LDL/HDL 3.55 RATIO <3.55 H (test code = 2238) COMPREHENSIVE METABOLIC [id number] 06:21:35 Test Item Value Reference Range Interpretation Comments GLUCOSE (test code = 77 MG/DL 70-99 2216) BUN (test code = 12 MG/DL 6-20 2207) CREATININE (test 0.97 MG/DL 0.80-1.40 code = 2214) eGFR (2020 CKD-EPI) 101 >60 (test code = 29108) ML/MIN/1.73 CALC BUN/CREAT (test 12 RATIO 6-28 code = 2235) SODIUM (test code = 142 MEQ/L 823-218 3847) POTASSIUM (test code 4.9 MEQ/L 3.5-5.4 = 2227) CHLORIDE (test code 109 MEQ/L 95-107 H = 2214) CARBON DIOXIDE (test 18 MEQ/L 19-31 L code = 220) CALCIUM (test code = 8.5 MG/DL 8.5-10.5 2208) PROTEIN, TOTAL (test 6.2 G/DL 6.1-8.3 code = 2229) ALBUMIN (test code = 4.2 G/DL 3.5-5.2 2200) CALC GLOBULIN (test 2.0 G/DL 1.9-3.7 code = 2240) CALC A/G RATIO (test 2.1 RATIO 1.0-2.6 code = 2234) BILIRUBIN, TOTAL <0.2 MG/DL See_Comment [Automated message] (test code = 2206) The syste [employer] which generated this result transmit luba reference range : <=1.2. The refe rence range was not u sed to interpret th is result as normal/abnormal . ALKALINE PHOSPHATASE 89 U/L 40-117 (test code = 2203) AST (test code = 19 U/L 9-50 2217) ALT (test code = 17 U/L 5-50 2218) HIV 1/2 4TH GEN, RFLX [id number] 05:54:17 Test Item Value Reference Range Interpretation Comments HIV 1/2 4TH GEN, RFLX CONF (test NON-REACTIVE NON-REACTIVE code = 3514) HEMOGLOBIN [id number] 02:58:19 Test Item Value Reference Range Interpretation Comments HEMOGLOBIN A1c (test code = 92903) 5.7 % 4.2-5.6 H CBC W/AUTO DIFF WITH [id number] 02:37:19 Test Item Value Reference Range Interpretation Comments WBC (test code = 10.3 K/UL 3.5-11.0 1001) RBC (test code = 4.51 M/UL 4.50-6.10 1002) HEMOGLOBIN (test code 14.3 G/DL 13.5-17.0 = 1003) HEMATOCRIT (test code 41.7 % 40.0-51.0 = 1004) MCV (test code = 92.5 fL 80.0-99.0 1005) MCH (test code = 31.7 PG 25.0-33.0 1006) MCHC (test code = 34.3 G/DL 31.0-36.0 1007) RDW (test code = 11.9 % 11.5-15.0 1038) NEUTROPHILS (test 65.5 % code = 1008) LYMPHOCYTES (test 22.8 % code = 1010) MONOCYTES (test code 10.4 % = 1011) EOSINOPHILS (test 0.7 % code = 1012) BASOPHILS (test code 0.3 % = 1013) IMMATURE GRANULOCYTES 0.3 % (test code = 1036) NUCLEATED RBCS (test 0.0 /100 WBC'S See_Comment [Aut omated code = 1065) message] The sy stem which generated this result transmitted reference range : 0.0. The refere nce range was not u sed to interpret th is result as normal/abnormal . PLATELET COUNT (test 376 K/UL 130-400 code = 1015) ABSOLUTE NEUTROPHILS 6.72 K/UL 1.50-7.50 (test code = 1066) ABSOLUTE LYMPHOCYTES 2.34 K/UL 1.00-4.00 (test code = 1067) ABSOLUTE MONOCYTES 1.07 K/UL 0.20-1.00 H (test code = 1068) ABSOLUTE EOSINOPHILS 0.07 K/UL 0.00-0.50 (test code = 1040) ABSOLUTE BASOPHILS 0.03 K/UL 0.00-0.20 (test code = 1069) ABS IMMATURE 0.03 K/UL 0.00-0.10 GRANULOCYTES (test code = 1020) ABS NUCLEATED RBCS 0.00 K/UL 0.00-0.11 (test code = 08959) SARS-CoV-2 RNA Resp Ql [id number] 05:14:44 Test Item Value Reference Range Interpretation Comments Hospitalized? (test No code = 05486-4) ICU? (test code = No 48945-6) Symptomatic as defined No by CDC? (test code = 03207-3) Employed in No Healthcare? (test code = 55775-1) Resident in a No congregate care setting (including nursing homes, residential care for people with intellectual and developmental disabilities, psychiatric treatment facilities, group homes, board and care homes, homeless penitentiary, foster care or other): (test code = 90578-6) SARS-CoV-2 RNA Resp Ql NOT DETECTED Not Detected INTER PRETATION: No RAVI+probe (test code = detec table levels 73960-5) of SARS-CoV-2 Coronavirus (COVID-19) were present in this patient's sampl e by this test. A no t detected result does not exclud e the possibility of active infectio n with this virus due to other factor s that may affect the results such as a poorly collecte d sample, viral titers below th e limit of detect ion of the assay, a nd the infrequent possibility of inhibitors in t he sample. This re sult should be interpreted in conjunction wit h clinical, radiographic, a nd other laborator y findings and sh ould not be used as the sole indicator of active infectio n with SARS-CoV-2 Coronavirus (COVID-19). COMMENT: This aury real-time reverse transcriptase polymerase chain reaction (RT-PCR) test rapidly detects SARS-CoV-2 (COVID-19) virus from nasopharyngeal and nasal swab specimens. In accordance with the FDA's guidance document "Policy for Diagnostic Tests for Coronavirus Disease-2019 during the Public Health Emergency", this test was developed, and its performance characteristics were verified by the [facility] molecular diagnostics laboratory and is authorized for clinical diagnostic use. This laboratory is certified under the Clinical Laboratory Improvement Amendments (CLIA) as qualified to perform high complexity clinical laboratory testing.HHSCT ABDOMEN AND PELVIS WITHOUT CONTRAST *WW*2017-05-12 00:25:05Examination: Abdomen and pelvic CT without contrast After hours service provided on 05/12/2017 12:22 AM.Location code: [id number]: NoneTechnique:Axial noncontrast contiguous images were obtained through [...] is limited due to lack ofintravenous and or al contrast. The liver, gallbladder, spleen, pancreas, andright adrenal gland are normal. Left adrenal gland is hyperplastic adenomatouschange.Kidneys demonstrate appropriate contour, no renal or ureteric calculus isidentified.Caliber of the bowel is within normal limits. The appendix is normal.Bladder, prostate, and seminal vessels are unremarkable.There are no lytic or blastic lesions present within the osseous structuresImpression:1. No acute abdominopelvic abnormality.AMYLASE AND LIPASE *WW*2017-05-11 23:42:00 Test Item Value Reference Range Interpretation Comments AMYLASE (test code = 10A) 53 U/L [...] 31A) 9 IU/L <=78 URINALYSIS WITH MICRO *WW*2017-05-11 23:31:00 Test Item Value Reference Range Interpretation [...] = USPERM) /HPF NONE CBC (INCLUDES AUTOMATED DIFFERENTIAL)*[id number] 23:21:00 Test Item Value Reference Range Interpretation Comments WBC (test code = WBC) 6.5 10\\S\\3/uL 4.5-11.0 RBC (test code = RBC) 4.51 10\\S\\6/uL 4.30-5.70 HGB (test code = HBG) 14.4 g/dL 14.0-18.0 HCT (test code = HCT) 41.6 % 35.0-46.0 MCV (test code = MCV) 92.2 fL 80.0-94.0 MCH (test code = MCH) 31.9 pg 27.0-31.0 H MCHC (test code = MCHC) 34.6 g/dL 32.0-36.0 RDW (test code = RDW) 12.2 % 11.5-14.5 PLT (test code = PLT) 191 10\\S\\3/uL 130-400 MPV (test code = MPV) 10.2 fL 9.4-12.4 NEUTROP # (test code = NE#) 3.2 10\\S\\3/uL 2.0-8.0 LYMPH # (test code = LY#) 2.4 10\\S\\3/uL 1.2-4.0 MONOCYTE # (test code = MO#) 0.8 10\\S\\3/uL 0.0-1.1 EOSINOPH # (test code = EO#) 0.1 10\\S\\3/uL 0.0-0.7 BASOPHIL # (test code = BA#) 0.0 10\\S\\3/uL 0.0-0.3 IG # (test code = IG#) 0.01 10\\S\\3/uL 0.00-0.06 NRBC # (test code = NRBC#) 0.00 10\\S\\3/uL 0.00-0.01 NEUTROPH % (test code = NE%) [...]
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
[2022-09-02 16:51] LABS: Absolute Lymphocytes (CBC) 1.8 K/uL (0.7-4.9); Hematocrit 41.5 % (39.6-49.0); Lymphocytes % 16.9 % (15.3-44.8); MPV 8.2 fL (7.6-11.3); RBC Red Blood Cell Count 4.51 M/uL (4.33-5.43)
[2022-09-02 18:48] VITALS: TEMP 99.1; O2SAT 96
[2022-09-02 18:51] VITALS: BP 138/78
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
== END 2022-09-02 12:55 | disposition home or self-care (01) ==
LOC: ER 09:32
DX: S22.42XA Multiple fractures of ribs, left side, initial encounter for closed fracture (principal); S80.812A Abrasion, left lower leg, initial encounter; S20.412A Abrasion of left back wall of thorax, initial encounter; M79.605 Pain in left leg; V03.09XA Pedestrian with other conveyance injured in collision with car, pick-up truck or van in nontraffic accident, initial encounter; Y93.89 Activity, other specified; Y92.014 Private driveway to single-family (private) house as the place of occurrence of the external cause
CPT/HCPCS: 36415; 70450; 71260; 72125; 74177; 80048; 85025; 96374; 96375; 99284; J2405; J7030; Q9967

== ENCOUNTER 2022-09-12 11:52 | Emergency (ER) | payer SELFPAY ==
--- OUTSIDE RECORDS SUMMARY | 2022-09-12 12:02 | XMS REPORT | Continuity of Care Document ---
:1980 Author Organization [facility] t Address [address] [facility] [address] [place] [address] Care Team Providers Name Role Phone EVERARDO [...] Date Date Clinician No Known DA Active [facility] Medications This patient has no known medications. Vital Signs Vital Name Observation Time Observation Value Comments Source Height 2017-05-11 23:06:00 175.26 CM Weight 2017-05-11 23:06:00 95.25 KG Procedures This patient has no known procedures. Encounters Start End Encounter Admission Attending Care Care Encounter Source Date/Time Date/Time Type Type Clinicians Facility Department ID 2021-08-27 Outpatient [facility] [id number] [place] 22:36:34 [id number] [facility] 2022-04-10 2022-04-14 Inpatient BRENDA BANEGAS [facility] [id number] [place] 16:58:24 13:51:00 EVERARDO [facility] 2021-10-25 2021-10-25 Outpatient ACKERMAN, [facility] [id number] [place] 00:00:00 00:00:00 JUSTINE [facility] 2021-10-10 2021-10-11 Inpatient COVERDALE, [facility] [id number] [place] 22:45:00 18:24:00 [facility] 2021-10-10 2021-10-10 Emergency COVERDALE, [facility] [id number] [place] 00:40:00 22:32:00 [facility] 2021-10-10 2021-10-10 Emergency 1 SEVERE, [facility] [id number] [place] 00:40:00 00:40:00 [facility] 2021-10-09 2021-10-09 Outpatient ALESHA BORRERO [facility] [id number] [place] 20:21:14 23:59:00 [facility] 2021-08-27 2021-08-31 Inpatient BANEGAS, [facility] [id number] [place] 19:36:01 07:00:00 [facility] 2021-08-27 2021-08-27 Outpatient DANA, [facility] [id number] [place] 10:36:51 19:34:00 MORE [facility] 2021-07-20 2021-07-20 Outpatient HOWARD, [facility] [id number] [place] 09:19:31 23:59:00 [facility] 2017-05-11 2017-05-12 Emergency E LIN, [facility] [id number] [place] 22:38:00 00:30:00 [facility] Results Test Description Test Time Test Comments Results Result Comments Source GONORRHEA, NAAT, URINE 2021-11-20 17:42:55 Test Item Value Reference Range Interpretation Comme nts GONORRHEA, NAAT NEGATIVE NEGATIVE IMPORTA NT NOTICE: SEE ANNOUNCEMENT AT (test code = [email or web address] Note: 13353) Assay methodolo gy is nucleic acid amplification by transcriptio n mediated amplification (TMA) utilizing the A ptima Combo 2 Assay. CHLAMYDIA, NAAT, [id number] 17:42:55 Test Item Value Reference Range Interpretation Comments CHLAMYDIA, NAAT NEGATIVE NEGATIVE IMPORTA NT NOTICE: SEE (test code = [place] [address]) [email or web address] Note: Assay methodology is nucleic acid amplification b y cavalry officer m ediated amplification ( TMA) utilizing the A ptima Combo 2 Assay. UNLESS OTHERWISE INDICATED, ALL TESTING PERFORMED [facility] [address] [id number] [place] [address] DIRECTOR: MARKUS MIDDLETON M.D. CLIA NUMBER [id number] CAP ACCREDITATION N O. [id number] 09:41:39 Test Item Value Reference Range Interpretation Comments RPR RESULT (test code = NON-REACTIVE NON-REACTIVE 3501) RPR TITER (test code = 3500) NOT INDIC. TITER NOT INDIC. COMPREHENSIVE METABOLIC [id number] 06:21:35 Test Item Value Reference Range Interpretation Comments GLUCOSE (test code = 77 MG/DL 70-99 2216) BUN (test code = 12 MG/DL 6-20 2207) CREATININE (test 0.97 MG/DL 0.80-1.40 code = 2214) eGFR (2020 CKD-EPI) 101 >60 (test code = 81197) ML/MIN/1.73 CALC BUN/CREAT (test 12 RATIO 6-28 code = 2235) SODIUM (test code = 142 MEQ/L 688-661 9080) POTASSIUM (test code 4.9 MEQ/L 3.5-5.4 = 2227) CHLORIDE (test code 109 MEQ/L 95-107 H = 2215) CARBON DIOXIDE (test 18 MEQ/L 19-31 L code = 2206) CALCIUM (test code = 8.5 MG/DL 8.5-10.5 2208) PROTEIN, TOTAL (test 6.2 G/DL 6.1-8.3 code = 2229) ALBUMIN (test code = 4.2 G/DL 3.5-5.2 2200) CALC GLOBULIN (test 2.0 G/DL 1.9-3.7 code = 2240) CALC A/G RATIO (test 2.1 RATIO 1.0-2.6 code = 2234) BILIRUBIN, TOTAL <0.2 MG/DL See_Comment [Automated message] (test code = 2207) The syste m which generated this result transmit luba reference range : <=1.2. The refe rence range was not u sed to interpret th is result as normal/abnormal . ALKALINE PHOSPHATASE 89 U/L 40-117 (test code = 4) AST (test code = 19 U/L 50 2217) ALT (test code = 17 U/L -50 2218) LIPID [id number] 06:21:35 Test Item Value Reference Range Interpretation [...] MOREINFORMATION , SEE CLIENT ANNOUNCE MENT AT [email or web address] RISK RATIO LDL/HDL 3.55 RATIO <3.55 H (test code = 2238) HIV 1/2 4TH GEN, RFLX [id number] 05:54:17 Test Item Value Reference Range Interpretation Comments HIV 1/2 4TH GEN, RFLX CONF (test NON-REACTIVE NON-REACTIVE code = 3514) HEMOGLOBIN [id number] 02:58:19 Test Item Value Reference Range Interpretation Comments HEMOGLOBIN A1c (test code = 07316) 5.7 % 4.2-5.6 H CBC W/AUTO DIFF WITH [id number] 02:37:19 Test Item Value Reference Range Interpretation [...] RBCS 0.00 K/UL 0.00-0.11 (test code = 85859) SARS-CoV-2 RNA Resp Ql [id number] 05:14:44 Test Item Value Reference Range Interpretation Comments Hospitalized? (test No code = 62354-9) ICU? (test code = No 50555-9) Symptomatic as defined No by CDC? (test code = 10727-2) Employed in No Healthcare? (test code = 05371-9) Resident in a No congregate care setting (including nursing homes, residential care for people with intellectual and developmental disabilities, psychiatric treatment facilities, group homes, board and care homes, homeless half-way, foster care or other): (test code = 65910-9) SARS-CoV-2 RNA Resp Ql NOT DETECTED Not Detected INTER PRETATION: No RAVI+probe (test code = detec table levels 17661-3) of SARS-CoV-2 Coronavirus (COVID-19) were present in [...] its performance characteristics were verified by the [facility] molecular diagnostics laboratory and is authorized for clinical diagnostic use. This laboratory is certified under the Clinical Laboratory Improvement Amendments (CLIA) as qualified to perform high complexity clinical laboratory testing.HHSCT ABDOMEN AND PELVIS WITHOUT CONTRAST *WW*2017-05-12 00:25:05Examination: Abdomen and pelvic CT without contrast After hours service provided on 05/12/2017 12:22 AM.Location code: Y2Zgtdnhptme: NoneTechnique:Axial noncontrast contiguous images were obtained through [...] = USPERM) /HPF NONE CBC (INCLUDES AUTOMATED DIFFERENTIAL)*[id number] 23:21:00 Test Item Value Reference Range Interpretation [...]
[2022-09-12 13:02] LABS: Absolute Lymphocytes (CBC) 1.3 K/uL (0.7-4.9); Hematocrit 39.7 % (39.6-49.0); Lymphocytes % 20.5 % (15.3-44.8); MCV 91.1 fL (80-100); RBC Red Blood Cell Count 4.36 M/uL (4.33-5.43)
[2022-09-12 13:16] LABS: Potassium 3.8 mEq/L (3.5-5.1)
--- NOTE | 2022-09-12 13:30 | RAD REPORT ---
EXAM DESCRIPTION: US - Extremity Venous Uni Ltd - 09/12/2022 1:12 pm CLINICAL HISTORY: Pain COMPARISON: None. TECHNIQUE: Real-time sonographic evaluation of the left lower extremity deep venous system was perfo rmed. FINDINGS: Normal compressibility, flow augmentation, phasic flow and spontaneous flow is identified in the left lower extremity deep venous system. No intraluminal filling defects seen. IMPRESSION: No DVT in the left lower extremity.
--- NOTE | 2022-09-12 13:40 | RAD REPORT ---
EXAM DESCRIPTION: RAD - Knee Left 3 View - 09/12/2022 1:22 pm CLINICAL HISTORY: Pain;Swelling COMPARISON: No comparisons FINDINGS/IMPRESSION: No acute fracture. No malalignment. No significant focal degenerative changes.
[2022-09-12] MEDS ORDERED: ONDANSETRON 4 MG/2 ML VIAL ONE (14:13)
[2022-09-12] MEDS ORDERED: MORPHINE 4 MG/ML SYR ONE (14:13)
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
[2022-09-12 16:05] VITALS: TEMP 98.1; O2SAT 100
[2022-09-12 16:15] VITALS: BP 131/89
== END 2022-09-12 16:01 | disposition home or self-care (01) ==
LOC: ER 11:52
DX: L76.34 Postprocedural seroma of skin and subcutaneous tissue following other procedure (principal)
CPT/HCPCS: 36415; 80048; 85025; 93971; 96374; 96375; 99284; J2405